=== PATIENT | female | born 1950 | race Caucasian/White ===

== ENCOUNTER 2023-05-31 14:00 | Outpatient (CLI) | payer OTHER | END 2023-05-31 14:08 | disposition home or self-care (01) | LOC: RAD 14:00 | DX: N20.0 Calculus of kidney (principal); N20.1 Calculus of ureter ==

== ENCOUNTER 2023-07-16 12:45 | Outpatient (CLI) | payer OTHER | END 2023-07-16 12:51 | disposition home or self-care (01) | LOC: RAD 12:45 | DX: N20.0 Calculus of kidney (principal) ==